=== PATIENT | female | born 1985 | race Caucasian/White ===

== ENCOUNTER 2017-06-21 10:16 | Inpatient (IN) | payer OTHER ==
[2017-06-21] MEDS ORDERED: OXYTOCIN 30 UNITS/LR 500 ML IV (10:30)
[2017-06-21] MEDS ORDERED: LIDOCAINE 1% (MPF) 30 ML INJ INJ (10:30)
[2017-06-21] MEDS ORDERED: METHYLERGONOVINE 0.2 MG INJ IM (10:30)
[2017-06-21] MEDS ORDERED: CARBOPROST 250 MCG INJ IM (10:30)
[2017-06-21] MEDS ORDERED: MISOPROSTOL 200 MCG TAB PR (10:30)
[2017-06-21 11:50] LABS: ADD MAN DIFF? NO
[2017-06-21 11:55] LABS: BASOPHILS % 0.1 % (0.0-2.0); EOSINOPHILS % 0.2 % (0.0-7.0); HEMATOCRIT 29.5 % (37.0-47.0); HEMOGLOBIN 9.9 g/dl (12.0-16.0); LYMPHOCYTES # 1.5 10^3/ul (0.8-2.9); MEAN CORPUSCULAR HEMOGLOBIN 29.6 pg (29.0-33.0); MEAN CORPUSCULAR HGB CONC 33.6 g/dl (32.0-37.0); MEAN CORPUSCULAR VOLUME 88.3 fl (82.0-101.0); MONOCYTE # 0.4 10^3/ul (0.3-0.9); MONOCYTES % 5.2 % (0.0-11.0); NEUTROPHIL # 6.2 10^3/ul (1.6-7.5); PLATELET COUNT 234 10^3/UL (140-415); RED BLOOD COUNT 3.34 10^6/ul (4.20-5.40); RED CELL DISTRIBUTION WIDTH 13.2 % (11.5-14.5)
[2017-06-21 11:55] LABS: WHITE BLOOD COUNT 8.1 10^3/ul (4.8-10.8)
[2017-06-21] MEDS: MINERAL OIL LIGHT 10 ML VIAL TOP (12:00)
[2017-06-21] MEDS: LACTATED RINGER'S 1,000 ML IV ×3 (12:34→20:03)
[2017-06-21 12:37] LABS: INR 0.88; PT RATIO 0.9
[2017-06-21 12:38] LABS: PARTIAL THROMBOPLASTIN TIME 26.4 Sec (25.0-35.0)
[2017-06-21 12:54] LABS: HEPATITIS B SURFACE ANTIGEN NEGATIVE (NEGATIVE)
[2017-06-21] MEDS: DINOPROSTONE 10 MG VAG SUPP VAG (13:26)
[2017-06-21 15:10] LABS: RAPID PLASMA REAGIN NONREACTIVE (NR)
[2017-06-21 15:56] LABS: ALANINE AMINOTRANSFERASE 34 IU/L (13-69); ALBUMIN 3.5 g/dl (3.3-4.9); ALBUMIN/GLOBULIN RATIO 1.09; ALKALINE PHOSPHATASE 187 IU/L (42-121); ANION GAP 12 (8-16); ASPARTATE AMINO TRANSFERASE 24 IU/L (15-46); BLOOD UREA NITROGEN 7 mg/dl (7-20); CALCIUM 9.6 mg/dl (8.4-10.2); CARBON DIOXIDE 21 mmol/L (21-31); CHLORIDE 108 mmol/L (97-110); CREATININE 0.47 mg/dl (0.44-1.00); GLUCOSE 84 mg/dl (70-220); SODIUM 137 mmol/L (135-144); TOTAL PROTEIN 6.7 g/dl (6.1-8.1); URIC ACID 4.1 mg/dl (3.1-7.9)
[2017-06-21 16:19] LABS: ADD UMIC YES; UR ASCORBIC ACID NEGATIVE (NEGATIVE); UR BACTERIA FEW /HPF (NONE SEEN); UR BILIRUBIN (Dip) NEGATIVE (NEGATIVE); UR BLOOD (Dip) NEGATIVE (NEGATIVE); UR CLARITY CLEAR (CLEAR); UR COLOR YELLOW (YELLOW); UR GLUCOSE (Dip) NEGATIVE (NEGATIVE); UR KETONES (Dip) TRACE mg/dL (NEGATIVE); UR LEUKOCYTE ESTERASE (Dip) TRACE Leu/ul (NEGATIVE); UR NITRITE (Dip) NEGATIVE (NEGATIVE); UR RBC 0 /HPF (0-5); UR SPECIFIC GRAVITY (Dip) 1.008 (1.003-1.030); UR TOTAL PROTEIN (Dip) NEGATIVE (NEGATIVE); UR UROBILINOGEN (Dip) NEGATIVE (NEGATIVE); UR WBC 1 /HPF (0-5)
[2017-06-21] MEDS: ACETAMINOPHEN 325 MG TAB PO (18:23)
[2017-06-21] MEDS ORDERED: NALOXONE (0.4 MG/ML) INJ IV (20:00)
[2017-06-21] MEDS ORDERED: ONDANSETRON 4 MG INJ IV (20:00)
[2017-06-21] MEDS ORDERED: DIPHENHYDRAMINE 50 MG INJ IV (20:00)
[2017-06-21] MEDS: LABETALOL 100 MG TAB PO (21:34)
[2017-06-22] MEDS: LACTATED RINGER'S 1,000 ML IV ×2 (03:58→11:04)
[2017-06-22] MEDS: FENTAnyl 2MCG/ML-ROPIV 0.2% 100 ML BAG EPI ×2 (04:40→11:01)
[2017-06-22] MEDS: ACETAMINOPHEN 325 MG TAB PO (08:06)
[2017-06-22] MEDS: LABETALOL 100 MG TAB PO ×2 (09:18→21:04)
[2017-06-22] MEDS: OXYTOCIN 30 UNITS/LR 500 ML IV ×3 (10:15→16:05)
[2017-06-22] MEDS: IBUPROFEN 600 MG TAB PO ×2 (16:02→18:00)
[2017-06-22] MEDS: LACTATED RINGER'S 1,000 ML IV* (17:41)
[2017-06-22] MEDS ORDERED: MISOPROSTOL 200 MCG TAB PR (18:00)
[2017-06-22] MEDS ORDERED: HYDROCODONE/APAP (5/325) TAB PO (18:00)
[2017-06-22] MEDS ORDERED: CEPHALEXIN 500 MG CAP PO (18:00)
[2017-06-22] MEDS ORDERED: METHYLERGONOVINE 0.2 MG INJ IM (18:00)
[2017-06-22] MEDS ORDERED: DIBUCAINE 1% 30 GM OINT PR (18:00)
[2017-06-22] MEDS ORDERED: ZOLPIDEM 5 MG TAB PO (18:00)
[2017-06-22] MEDS ORDERED: OXYTOCIN 30 UNITS/LR 500 ML IV (18:00)
[2017-06-22] MEDS ORDERED: CARBOPROST 250 MCG INJ IM (18:00)
[2017-06-22] MEDS: MAGNESIUM HYDROXIDE 30ML CUP PO (21:03)
[2017-06-22] MEDS: WITCH HAZEL/GLYCERIN PAD PR (21:03)
[2017-06-22] MEDS: BENZOCAINE 20% 56 ML SPRAY TOP (21:03)
[2017-06-22] MEDS: NITROFURANTOIN (SR) 100 MG CAP PO (21:04)
[2017-06-22] MEDS: HYDROCODONE/APAP (5/325) TAB PO ×2 (21:04→21:10)
[2017-06-22] MEDS: SENNA/DOCUSATE NA (8.6MG/50MG) TAB PO (21:04)
[2017-06-23] MEDS: LACTATED RINGER'S 1,000 ML IV* ×3 (01:41→17:39)
[2017-06-23] MEDS: IBUPROFEN 600 MG TAB PO ×4 (06:00→17:39)
[2017-06-23 09:13] LABS: ADD MAN DIFF? NO
[2017-06-23 09:17] LABS: WHITE BLOOD COUNT 11.8 10^3/ul (4.8-10.8)
[2017-06-23 09:17] LABS: BASOPHILS % 0.2 % (0.0-2.0); EOSINOPHILS # 0.1 10^3/ul (0.0-0.5); EOSINOPHILS % 0.4 % (0.0-7.0); HEMATOCRIT 31.8 % (37.0-47.0); HEMOGLOBIN 10.5 g/dl (12.0-16.0); LYMPHOCYTES # 1.7 10^3/ul (0.8-2.9); LYMPHOCYTES % 14.2 % (15.0-51.0); MEAN CORPUSCULAR HEMOGLOBIN 29.2 pg (29.0-33.0); MEAN CORPUSCULAR VOLUME 88.3 fl (82.0-101.0); MEAN PLATELET VOLUME 10.8 fl (7.4-10.4); MONOCYTE # 0.6 10^3/ul (0.3-0.9); MONOCYTES % 5.4 % (0.0-11.0); NEUTROPHIL # 9.4 10^3/ul (1.6-7.5); NEUTROPHILS % 79.4 % (39.0-77.0); PLATELET COUNT 234 10^3/UL (140-415); RED CELL DISTRIBUTION WIDTH 12.9 % (11.5-14.5)
[2017-06-23] MEDS: MAGNESIUM HYDROXIDE 30ML CUP PO ×2 (09:54→21:00)
[2017-06-23] MEDS: SENNA/DOCUSATE NA (8.6MG/50MG) TAB PO ×2 (09:54→21:00)
[2017-06-23] MEDS: NITROFURANTOIN (SR) 100 MG CAP PO ×2 (09:54→21:10)
[2017-06-23] MEDS: LABETALOL 100 MG TAB PO (09:55)
[2017-06-23] MEDS: INFLUENZA VIRUS VACCINE 0.5 ML SYG IM* (09:57)
[2017-06-24] MEDS: LANOLIN 7 GM TUBE TOP (00:43)
[2017-06-24] MEDS: IBUPROFEN 600 MG TAB PO ×3 (00:43→12:08)
[2017-06-24] MEDS: LACTATED RINGER'S 1,000 ML IV* (01:41)
[2017-06-24] MEDS: NITROFURANTOIN (SR) 100 MG CAP PO (08:51)
[2017-06-24] MEDS: SENNA/DOCUSATE NA (8.6MG/50MG) TAB PO (08:51)
[2017-06-24] MEDS: MAGNESIUM HYDROXIDE 30ML CUP PO (08:51)
[2017-06-24] MEDS: VARICELLA VACCINE LIVE/PF 1,350 UNIT/0.5 ML ML SC* (09:00)
[2017-06-24] MEDS: MEASLES,MUMPS,RUBELLA VACCINE INJ SC* (09:00)
[2017-06-24] MEDS: DIPHTH/TET/ACEL PERTUSS (ADULT) 0.5 ML VIAL IM* (09:00)
== END 2017-06-24 14:39 | disposition home or self-care (01) | DRG 774 ==
LOC: L-D 10:16 → PP1 06-22 17:35 → L-D 17:35 → PP1 06-22 18:24
PROVIDERS: Obstetrics & Gynecology
PROC: 3E033VJ Introduction of Other Hormone into Peripheral Vein, Percutaneous Approach (ICD-10-PCS; 2017-06-21 08:30)
DX: O10.92 Unspecified pre-existing hypertension complicating childbirth (principal); J45.909 Unspecified asthma, uncomplicated; O70.0 First degree perineal laceration during delivery; Z37.0 Single live birth; Z3A.38 38 weeks gestation of pregnancy; O99.52 Diseases of the respiratory system complicating childbirth
CPT/HCPCS: 62319; 80053; 81001; 84560; 85025; 85610; 85730; 86592; 86850; 86900; 86901; 87340; 90686; 90715; 90716